=== PATIENT | male | born 1995 | race Caucasian/White ===

== ENCOUNTER 2021-01-13 12:18 | Emergency (ER) | payer OTHER, MEDICAID, SELFPAY ==
[2021-01-13 12:38] VITALS: BP 135/82; PULSE 71; RESP 15; TEMP 36.6; O2SAT 100; BMI 25.0
--- NOTE | 2021-01-13 12:46 | DI.RAD.S_ITS ---
PROCEDURE: XR WRIST RT MIN 3V INDICATIONS: wrist injury TECHNIQUE: 4 views of the wrist were acquired. COMPARISON: None. FINDINGS: Bones: No fractures or dislocations. No suspicious bony lesions. Scaphoid view: Scaphoid is intact. Soft tissues: No suspicious soft tissue calcifications. IMPRESSION: No fracture. No osseous lesion. If symptoms and/or clinical suspicion for pathology persists, further assessment with repeat radiographs (7-10 days) or advanced imaging (e.g. CT, MRI or bone scan) should be considered. Dictated by: Izzy Benz MD, PhD on 01/13/2021 at 13:26 Approved by: Izzy Benz MD, PhD on 01/13/2021 at 13:27
--- NOTE | 2021-01-13 14:35 | ED.UPPEXIN ---
HPI - Extremity Injury (Upper) <SHILPI Muñoz - Last Filed: 01/13/21 15:15> General Chief Complaint: Extremity Injury, Upper Stated Complaint: Possible Broken Rt Wrist Time Seen by Provider: 01/13/21 14:34 Source: patient Mode of arrival: Ambulatory Limitations: no limitations History of Present Illness HPI narrative: Patient is a 25-year-old male who presents to the emergency department today complaining of right wrist pain after being pushed by an excavator at work into a pole and his right wrist over extended and is now causing him pain. He has an abrasion over his right clavicle and he reports that the skin hurts but otherwise does not have any deeper pain than that, he denies any changes to his range of motion or his her right arm strength. He denies any range of motion difficulties in his right wrist, denies any numbness or tingling, has contusion and abrasion on the dorsum of his right wrist. He also reports that he would like a COVID vaccine if he can have that today. Handedness: right Severity scale (1-10): 5 Relieving factors: cold therapy and rest Exacerbating factors: movement of extremity Related Data Allergies Allergy/AdvReac Type Severity Reaction Status Date / Time No Known Drug Allergies Allergy Verified 01/13/21 12:41 Review of Systems <SHILPI Muñoz - Last Filed: 01/13/21 15:15> Review of Systems Narrative: General: denies fever, chills Head/Neck: denies headache, neck pain Eyes: denies visual changes, eye pain Cardio: denies chest pain, palpitations Respiratory: denies shortness of breath, cough GI: denies abdominal pain, nausea, vomiting, or diarrhea : denies dysuria, hematuria MSK: muscle weakness, endorses having right wrist pain and right shoulder pain, denies any numbness or tingling. Skin: denies rash, itching Neuro: denies numbness, tingling Patient History <SHILPI Muñoz - Last Filed: 01/13/21 15:15> Social History Smoking Status: Unknown if ever smoked Smoking Status: Unknown if ever smoked alcohol intake frequency: holidays/special occasions only Substance Use Type: marijuana Exam <SHILPI Muñoz - Last Filed: 01/13/21 15:15> Narrative Exam Narrative: Independently reviewed vitals signs and nursing notes. General: Awake, alert, nontoxic, no cardiorespiratory distress Head/Neck: Atraumatic, neck full range of motion Eyes: EOMI, conjunctiva normal Nose: nares patent, no rhinorrhea Mouth/Throat: moist mucus membranes, posterior pharynx normal, no oral lesions Cardio: Regular rate and rhythm, no peripheral edema Respiratory: respirations unlabored without wheezing, stridor, or rales. No retractions. GI: Abdomen soft, nontender MSK: Moves all extremities, neurovascularly intact, right wrist with a contusion to the dorsum aspect with mild edema, no abnormalities with range of motion, no point tenderness over scaphoid, no point tenderness over distal radius or distal ulna. Patient has normal capillary refill in his fingers bilaterally, pulses 2+ bilaterally, pain is worst in extension, pain is not elicited with varus or valgus movement. Skin: Normal capillary refill, no rash Neuro: Normal speech and cognition, normal gait Initial Vital Signs Initial Vital Signs: Vital Signs Temperature 97.8 F 01/13/21 12:38 Pulse Rate 71 01/13/21 12:38 Respiratory Rate 15 01/13/21 12:38 Blood Pressure 135/82 01/13/21 12:38 Pulse Oximetry 100 01/13/21 12:38 <Liu Coles MD - Last Filed: 01/13/21 18:50> Initial Vital Signs Initial Vital Signs: Vital Signs Temperature 97.8 F 01/13/21 12:38 Pulse Rate 71 01/13/21 12:38 Respiratory Rate 15 01/13/21 12:38 Blood Pressure 135/82 01/13/21 12:38 Pulse Oximetry 100 01/13/21 12:38 Procedures <SHILPI Muñoz - Last Filed: 01/13/21 15:15> Orthopedic Splinting/Casting Injury #1: Side: right Upper Extremity Injury Location: wrist Upper Extremity Immobilizer: wrist splint Post splinting neuro exam: intact and no change Post splinting vascular exam: no change Placed by: Nursing Course <SHILPI Muñoz - Last Filed: 01/13/21 15:15> Orders Ordered: ED Orders 01/13/21 12:46 XR wrist RT min 3V Stat Discontinued Medications COVID-19 Vacc Ad26-S Recombinant (JSN) (PF) (Covid-19 Vacc, Ad26(Lexi)/Pf 0.5 Ml) 0.5 ml IM .ONCE ONE Stop: 01/13/21 14:38 Last Admin: 01/13/21 14:53 Dose: 0.5 ml Documented by: KBROTEM Vital Signs Vital signs: Vital Signs - 8 hr 01/13/21 12:38 01/13/21 15:14 Temperature 97.8 F Pulse Rate 71 76 Respiratory Rate 15 Blood Pressure 135/82 Pulse Oximetry 100 98 <Liu Coles MD - Last Filed: 01/13/21 18:50> Orders Ordered: ED Orders 01/13/21 12:46 XR wrist RT min 3V Stat Discontinued Medications COVID-19 Vacc Ad26-S Recombinant (JSN) (PF) (Covid-19 Vacc, Ad26(Lexi)/Pf 0.5 Ml) 0.5 ml IM .ONCE ONE Stop: 01/13/21 14:38 Last Admin: 01/13/21 14:53 Dose: 0.5 ml Documented by: KBROTEM Vital Signs Vital signs: Vital Signs - 8 hr 01/13/21 12:38 01/13/21 15:14 Temperature 97.8 F Pulse Rate 71 76 Respiratory Rate 15 Blood Pressure 135/82 Pulse Oximetry 100 98 MDM - Extremity Injury (Upper) <Yodit Barrow [facility] - Last Filed: 01/13/21 15:15> Imaging Data Extremity x-ray #1: Radiologist's Impression: PROCEDURE:? XR WRIST RT MIN 3V ? INDICATIONS: wrist injury ? TECHNIQUE:? 4 views of the wrist were acquired.? ? COMPARISON:? None. ? FINDINGS:? ? Bones:? No fractures or dislocations.? No suspicious bony lesions.? ? Scaphoid view:? Scaphoid is intact. ? Soft tissues:? No suspicious soft tissue calcifications.? ? IMPRESSION:? No fracture. No osseous lesion. If symptoms and/or clinical suspicion for pathology persists, further assessment with repeat radiographs (7-10 days) or advanced imaging (e.g. CT, MRI or bone scan) should be considered. ? ? Dictated by: Izzy Benz MD, PhD on 01/13/2021 at 13:26 ? ? Approved by: Izzy Benz MD, PhD on 01/13/2021 at 13:27 MDM Narrative Medical decision making narrative: 25-year-old male presents to the emergency department with right wrist pain after a hyperextension injury at home. X-rays negative for acute fracture, joint space abnormality or other acute osseous abnormality. Scaphoid was in view of x-ray, patient did not have snuffbox tenderness on exam, he has normal range of motion, without any deficit. This is most likely a wrist sprain, he also was administered at the [employer] vaccine today and has not been vaccinated before. He has an abrasion to his right shoulder over the distal clavicle, no bony tenderness on exam, no ecchymosis or crepitus. Patient is appropriate and amenable to discharge home. Vital signs are stable on repeat examination is unremarkable. Patient has been informed of results. Patient has been given strict return to ER precautions for any new or worsening symptoms. Patient understands to follow up closely with outpatient providers as instructed. Patient understands plan and agrees to discharge home. All questions and concerns answered at this time. Discharge Plan Departure Patient Disposition: Home Clinical Impression: COVID-19 vaccine administered, Abrasion Injury of wrist, right Qualifiers: Encounter type: initial encounter Qualified Code(s): S69.91XA - Unspecified injury of right wrist, hand and finger(s), initial encounter Instructions: DI for Wrist Sprain Activity Restrictions/Additional Instructions: *You have been diagnosed with a wrist sprain and injury of your right wrist. Please continue to ice this, take ibuprofen or Tylenol as needed for pain, try and rest and wear splint as much as possible that may decrease how long this hurts. Please return for any new worsening symptoms, or if you do not have normal mobility or function of your wrist. As far as your Samuel [facility] COVID vaccine, thank you and congratulations on your antibodies. You may have a fever and feel unwell tonight or tomorrow, takes some ibuprofen if so and drink plenty of fluids and it should be over soon. Please follow-up with your primary care provider if this is not healing as you would expect. *What to do: *Please continue to take your regular medications as directed. [ ] New medication prescriptions sent to your pharmacy: [ ] [ ] New medication written as a paper prescription [x ] No new medications given *Please follow up with your primary care provider in 2-3 days, call for an appointment. Let them know you were seen in the Emergency Department and that we ask that you be seen in follow up. We will electronically transmit a record of today's note if your PCP is in our system *If you do not have a primary care provider please contact the [facility] Resource line at [phone]. They will ask some questions about your medical history and help get you set up with a doctor in the community. *Return to Emergency Department if you should have any new, worsening or concerning symptoms, such as [fever greater than 101F, chills, worsening pain, persistent vomiting or other bothersome symptoms] Referrals: Sis Pond PA-C [Primary Care Provider] -
[2021-01-13] MEDS: COVID-19 VACC, Ad26(JANSSEN)/PF 0.5 ML IM (14:53)
[2021-01-13 15:14] VITALS: PULSE 76; O2SAT 98
== END 2021-01-13 15:15 | disposition home or self-care (01) ==
PROVIDERS: Emergency Provider Nurse Practitioner Critical Care Medicine; Family Provider Pediatrics; PCP Physician Assistant
DX: S63.501A Unspecified sprain of right wrist, initial encounter (principal); S40.211A Abrasion of right shoulder, initial encounter; X58.XXXA Exposure to other specified factors, initial encounter; Y99.0 Civilian activity done for income or pay; Z23 Encounter for immunization
CPT/HCPCS: 0031A; 73110; 91303; 99283

== ENCOUNTER 2021-05-08 14:17 | Emergency (ER) | payer OTHER, MEDICAID, SELFPAY ==
[2021-05-08 14:24] VITALS: BP 128/65; PULSE 86; RESP 20; TEMP 36.6; O2SAT 100
[2021-05-08] MEDS: ONDANSETRON 4 MG ODT SL (14:43)
[2021-05-08 18:47] VITALS: BP 123/74; PULSE 63; RESP 16; O2SAT 99
--- NOTE | 2021-05-08 20:30 | ED.HA ---
HPI - Headache <Axel Singleton PA-C - Last Filed: 05/08/21 20:36> General Chief Complaint: Headache Stated Complaint: Migraine Time Seen by Provider: 05/08/21 18:20 Mode of arrival: Ambulatory History of Present Illness HPI Narrative: 26-year-old male with past medical history migraines presents to the ED with 1 day of headache. Patient states that he does not get frequent headaches, however had some migraine like headaches in the past. Patient states that his headache started earlier today, starting with a sensation of photophobia, followed by a headache. Patient states his headache gradually worsened to about a 7 or 8/10 over the next 2 hours. Patient also endorsed nausea and 1 episode of vomiting. Patient took some Tylenol, but is unsure if he might have vomited the pills. Patient endorses that today's headache was similar to all his prior headaches. Denies fever, chills, neck stiffness, neck pain, eye pain, visual disturbances. Patient states that his headache resolved over his ED course without further intervention. Related Data Allergies Allergy/AdvReac Type Severity Reaction Status Date / Time No Known Drug Allergies Allergy Verified 01/13/21 12:41 Review of Systems <Axel Singleton PA-C - Last Filed: 05/08/21 20:36> Review of Systems ROS Unobtainable: All systems reviewed & are unremarkable except as noted in HPI and below Constitutional Constitutional: Denies chills, Denies fatigue, Denies fever(s), Denies frequent falls, Reports headache(s), Denies lethargy and Denies weakness Eyes Eyes: Denies change in vision, Denies eye discharge, Denies irritation and Denies loss of vision ENT Ears, Nose, Mouth, and Throat: Denies change in voice, Denies dizziness, Reports headache(s), Denies neck pain, Denies sore throat and Denies throat swelling Cardiovascular Cardiovascular: Denies chest pain, Denies irregular heart rhythm, Denies lightheadedness, Denies palpitations, Denies dyspnea, Denies dyspnea on exertion and Denies orthopnea Respiratory Respiratory: Denies cough, Denies dyspnea, Denies dyspnea on exertion and Denies wheezing Gastrointestinal Gastrointestinal: Denies abdominal pain, Denies change in bowel habits, Denies diarrhea, Reports nausea and Reports vomiting Genitourinary Genitourinary: Denies hematuria, Denies flank pain, Denies urinary incontinence and Denies urinary urgency Musculoskeletal Musculoskeletal: Denies back pain, Denies muscle weakness, Denies neck pain, Denies numbness and Denies tingling Integumentary/Breasts Skin/Breast: Denies pruritus, Denies erythema, Denies rash and Denies wounds Neurologic Neurologic: Denies behavioral changes, Denies confusion, Denies dizziness, Denies frequent falls, Reports headache(s), Denies loss of vision, Denies numbness, Denies tingling and Denies weakness Psychiatric Psychiatric: Denies anxiety, Denies behavioral changes, Denies confusion, Denies depression, Denies homicidal ideation and Denies suicidal ideation Endocrine Endocrine: Denies fatigue, Denies flushing and Denies palpitations Hematologic/Lymphatic Hematologic/Lymphatic: Denies easy bruising Allergic/Immunologic Allergic/Immunologic: Denies urticaria, Denies throat swelling and Denies wheezing Patient History <Axel Singleton PA-C - Last Filed: 05/08/21 20:36> Social History Smoking Status: Unknown if ever smoked Smoking Status: Unknown if ever smoked alcohol intake frequency: holidays/special occasions only Substance Use Type: marijuana Exam <Axel Singleton PA-C - Last Filed: 05/08/21 20:36> Initial Vital Signs Initial Vital Signs: Vital Signs Temperature 97.8 F 05/08/21 14:24 Pulse Rate 86 05/08/21 14:24 Respiratory Rate 20 05/08/21 14:24 Blood Pressure 128/65 05/08/21 14:24 Pulse Oximetry 100 05/08/21 14:24 Const General: cooperative, healthy appearing and comfortable [facility] Head: normal to inspection Ears: hearing grossly normal bilaterally Nose: external nose normal Face and sinus: normal facial exam Eyes General: appearance normal, both eyes and all related structures Neck Neck: normal visual inspection, full ROM and no meningeal signs Resp Effort & Inspection: normal respiratory effort Auscultation: clear to auscultation bilaterally Cardio Rate: regular rate Rhythm: regular rhythm Back/Spine/Pelvis Thoracic/Lumbar Spine: thoracic and lumbar spine normal to inspection Skin General: no rashes or lesions noted Neuro General: patient alert, patient awake and patient oriented x3 Other: PERRLA. CN 1 through 12 intact bilaterally. Gait normal. Neg pronator drift, neg [id number], neg rapid alternating movements. Strength and sensation intact. Full range of motion. Neurovascularly intact. Extrem General: normal to inspection Psych Appearance: grossly normal Mental Status: mental status grossly normal <Abner Stevenson DO - Last Filed: 05/09/21 03:00> Initial Vital Signs Initial Vital Signs: Vital Signs Temperature 97.8 F 05/08/21 14:24 Pulse Rate 86 05/08/21 14:24 Respiratory Rate 20 05/08/21 14:24 Blood Pressure 128/65 05/08/21 14:24 Pulse Oximetry 100 05/08/21 14:24 Course <Axel Singleton PA-C - Last Filed: 05/08/21 20:36> Orders Ordered: Discontinued Medications Ondansetron HCl (Ondansetron 4 Mg Odt) 4 mg SL NOW ONE Stop: 05/08/21 14:27 Last Admin: 05/08/21 14:43 Dose: 4 mg Documented by: BRYCE Vital Signs Vital signs: Vital Signs - 8 hr 05/08/21 14:24 05/08/21 18:47 Temperature 97.8 F Pulse Rate 86 63 Respiratory Rate 20 16 Blood Pressure 128/65 123/74 Pulse Oximetry 100 99 <Abner Stevenson DO - Last Filed: 05/09/21 03:00> Orders Ordered: Discontinued Medications Ondansetron HCl (Ondansetron 4 Mg Odt) 4 mg SL NOW ONE Stop: 05/08/21 14:27 Last Admin: 05/08/21 14:43 Dose: 4 mg Documented by: BRYCE Vital Signs Vital signs: Vital Signs - 8 hr 05/08/21 14:24 05/08/21 18:47 Temperature 97.8 F Pulse Rate 86 63 Respiratory Rate 20 16 Blood Pressure 128/65 123/74 Pulse Oximetry 100 99 MDM - Headache <Axel Singleton PA-C - Last Filed: 05/08/21 20:36> MDM Narrative Medical decision making narrative: 26-year-old male with past medical history migraines presents to the ED with 1 day of headache. Patient states that he does not get frequent headaches, however had some migraine like headaches in the past. Concern for migraine versus other primary headache. No red flag symptoms noted concerning for a subarachnoid hemorrhage, epidural abscess, meningitis. Patient's symptoms resolved while in the ED without intervention for the headache. Patient responded well to Zofran for nausea. Will discharge patient home with ED return precautions. Patient verbalized understanding. Discharge Plan Departure Patient Disposition: Home Clinical Impression: Headache Instructions: DI for Migraine Activity Restrictions/Additional Instructions: You were evaluated in the ED today for a headache. You nausea responded well to the Zofran. Your headache resolved over the course of the emergency department visit without any other interventions. Your symptoms were likely due to a migraine. You may take ibuprofen, Tylenol, Excedrin for your symptoms if you have a migraine again. Return to the ED if you have worsening symptoms, uncontrollable nausea, vomiting. <Abner Stevenson DO - Last Filed: 05/09/21 03:00> Cosign ED Attending Cosignature Attestation: I was immediately available in the department for consultation. This documentation has been reviewed and I agree with assessment and plan. Supervised by Abner Stevenson DO
== END 2021-05-08 18:47 | disposition home or self-care (01) ==
PROVIDERS: Emergency Provider Student in an Organized Health Care Education/Training Program
DX: R51.9 Headache, unspecified (principal); R11.2 Nausea with vomiting, unspecified
CPT/HCPCS: 99283